=== PATIENT | female | born 1990 | race Caucasian/White ===

== ENCOUNTER 2016-07-03 13:15 | Inpatient (IN) ==
[2016-07-03] MEDS ORDERED: KETOROLAC 30 MG/ML VIAL IV ONE (13:28)
[2016-07-03 14:28] LABS: Basophils # (Auto) 0 K/mcL (0.0-0.3); Basophils % (Auto) 0.5 % (0.0-2.0); Eosinophils # (Auto) 0.2 K/mcL (0.0-0.7); Eosinophils % (Auto) 3.7 % (0.0-7.0); Granulocytes % (Auto) 48.4 % (38.0-78.0); Lymphocytes % (Auto) 44.1 % (15.5-49.0); Mean Cell Volume 85.5 fL (80.0-100.0); Mean Corpuscular HGB Conc 33.2 g/dL (31.0-36.0); Mean Corpuscular Hemoglobin 28.4 pg (26.0-34.0); Monocytes # (Auto) 0.1 K/mcL (0.1-0.9); Monocytes % (Auto) 3.3 % (1.0-9.0); Platelet Count 173 K/mcL (140-440); RBC 4.91 M/mcL (4.00-5.20); Red Cell Distribution Width 14.7 % (11.5-14.5)
--- NOTE | 2016-07-03 15:21 | XRay Report ---
HISTORY: Reason for Exam:SOB FINDINGS: There is a very large right-sided pneumothorax. There is greater than 60% collapse of the lung. There is minimal right to left mediastinal shift. The left lung is clear normally expanded. The heart size is normal. There is partial atelectasis in the right lung. The pneumothorax is a new finding since 06/26/14. Field impression large right-sided pneumothorax IMPRESSION: Large right-sided pneumothorax. Dr. Farris was called with results Interpreted and Authenticated by: Harpal Ryan 07/03/16
[2016-07-03] MEDS ORDERED: PROMETHAZINE 25 MG/ML VIAL IV PRN ×2 (16:20→17:41)
[2016-07-03] MEDS ORDERED: ACETAMINOPHEN 325 MG TABLET PO PRN (16:20)
[2016-07-03] MEDS ORDERED: MAGNESIUM HYDROXIDE 30 ML ORAL.SUSP PO PRN ×2 (16:20→17:41)
[2016-07-03] MEDS ORDERED: ZOLPIDEM 5 MG TABLET PO PRN ×2 (16:20→21:00)
[2016-07-03] MEDS ORDERED: 0.9 % SODIUM CHLORIDE 1,000 ML IV SCH (16:30)
[2016-07-03] MEDS ORDERED: KETOROLAC 30 MG/ML VIAL IV SCH (18:00)
[2016-07-03] MEDS: 0.9 % SODIUM CHLORIDE 1,000 ML IV SCH (18:02)
[2016-07-03 18:20] LABS: Hemoglobin A1C 4.5 % HGB (4.0-6.0)
[2016-07-03] MEDS: KETOROLAC 30 MG/ML VIAL IV SCH ×2 (18:31→23:32)
[2016-07-03] MEDS ORDERED: HYDROmorphone 2 MG/ML SYRINGE IV PRN (18:35)
[2016-07-03] MEDS ORDERED: oxyCODONE/APAP 10/325MG TABLET PO PRN (18:37)
[2016-07-03] MEDS ORDERED: KETOROLAC 15 MG/ML VIAL ONE (18:39)
[2016-07-03] MEDS ORDERED: HYDROmorphone 2 MG/ML SYRINGE ONE (19:05)
[2016-07-03] MEDS ORDERED: FAMOTIDINE 20 MG TABLET PO SCH (21:00)
[2016-07-03] MEDS ORDERED: DOCUSATE SODIUM 100 MG CAPSULE PO SCH (21:00)
[2016-07-03] MEDS: DOCUSATE SODIUM 100 MG CAPSULE PO SCH (21:12)
[2016-07-03] MEDS: MEPERIDINE 50 MG/ML SYRINGE IV PRN (21:12)
[2016-07-03] MEDS: FAMOTIDINE 20 MG TABLET PO SCH (21:12)
[2016-07-03] MEDS ORDERED: 0.9 % SODIUM CHLORIDE 10 ML SYRINGE IV SCH (22:00)
[2016-07-03] MEDS: 0.9 % SODIUM CHLORIDE 10 ML SYRINGE IV SCH (22:19)
[2016-07-03] MEDS: LORazepam 1 MG TABLET PO PRN (23:32)
[2016-07-04] MEDS: MEPERIDINE 50 MG/ML SYRINGE IV PRN ×5 (01:05→20:59)
[2016-07-04] MEDS: 0.9 % SODIUM CHLORIDE 10 ML SYRINGE IV SCH ×3 (05:49→22:05)
[2016-07-04] MEDS: KETOROLAC 30 MG/ML VIAL IV SCH ×4 (05:52→23:50)
[2016-07-04 07:18] LABS: Mean Cell Volume 86.7 fL (80.0-100.0); Mean Corpuscular Hemoglobin 28.6 pg (26.0-34.0); Platelet Count 145 K/mcL (140-440); RBC 4.05 M/mcL (4.00-5.20); Red Cell Distribution Width 14.3 % (11.5-14.5)
[2016-07-04 08:12] LABS: Blood Urea Nitrogen 11 mg/dl (6-20)
--- NOTE | 2016-07-04 08:31 | Emergency Department Note ---
Chest Pain HPI - General Chief Complaint: Shortness of Breath/Dyspnea Stated Complaint: SOB/pain on inspiration Time Seen by Provider: 07/03/16 13:28 Source: patient Mode of arrival: ambulatory Limitations: no limitations - History of Present Illness HPI Narrative: 26-year-old female comes in after waking up with sudden acute onset severe chest pain today by EMS. Denies trauma or recent illness. Smoker - Related Data Home Medications Medication Instructions Recorded Confirmed LORazepam [Ativan] 1 mg PO Q8HP PRN 01/25/16 07/03/16 Previous Rx's Medication Instructions Recorded Ondansetron HCl 4 mg PO Q6HP PRN #10 tablet 05/22/16 Allergies Allergy/AdvReac Type Severity Reaction Status Date / Time tramadol Allergy Intermediate Hives Verified 01/25/16 17:08 codeine AdvReac Severe Anxiety Verified 07/04/16 01:37 Review of Systems All systems ED: reviewed and negative except as stated. Chest Pain PMH - Past Medical History Attestation: Yes: The following information was validated with the patient. 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 Normocephalic atraumatic. Conjunctiva clear sclerae anicteric. No nasal discharge or congestion. Oropharynx is pink and moist. Neck supple without lymphadenopathy or thyromegaly. Heart is slightly tachycardic no murmur. Lungs are clear to auscultation bilaterally but diminished sounds on the right. Abdomen soft nontender nondistended. No pedal edema. +2 radial pulse. Alert and oriented. - General Limitations: no limitations Course Vital Signs Temperature 98.3 F 07/03/16 13:18 Pulse Rate 95 H 07/03/16 13:18 Respiratory Rate 18 07/03/16 13:18 Blood Pressure 116/89 07/03/16 13:18 Pulse Oximetry (%) 97 07/03/16 13:18 Temperature 97.8 F 07/04/16 04:00 Pulse Rate 38 L 07/04/16 05:31 Respiratory Rate 16 07/04/16 04:00 Blood Pressure 97/59 07/04/16 04:00 Pulse Oximetry (%) 100 07/04/16 04:00 Chest Pain - Lab Data Lab results reviewed: Yes I reviewed the patient's lab results. Result diagrams: 07/04/16 05:20 07/04/16 05:20 Lab Results 07/03/16 07/03/16 07/03/16 Range/Units 13:40 13:40 13:40 WBC 4.5 (4.5-11.0) K/mcL RBC 4.91 (4.00-5.20) M/mcL Hgb 13.9 (12.0-15.0) g/dL Hct 42.0 (36.0-48.0) % POC Hct 42.0 (36.0-48.0) % MCV 85.5 (80.0-100.0) fL MCH 28.4 (26.0-34.0) pg MCHC 33.2 (31.0-36.0) g/dL RDW 14.7 H (11.5-14.5) % Plt Count 173 (140-440) K/mcL MPV 9.2 (7.4-10.4) fL Gran % 48.4 (38.0-78.0) % Lymph % (Auto) 44.1 (15.5-49.0) % Mesa % (Auto) 3.3 (1.0-9.0) % Eos % (Auto) 3.7 (0.0-7.0) % Baso % (Auto) 0.5 (0.0-2.0) % Gran # 2.2 (1.8-8.0) K/mcL Lymph # 2.0 (1.5-4.8) K/mcL Mes[place] # 0.1 (0.1-0.9) K/mcL Eos # 0.2 (0.0-0.7) K/mcL Baso # 0 (0.0-0.3) K/mcL POC Sodium 142 (133-145) mmol/L POC Potassium 3.7 (3.3-5.1) mmol/L POC Chloride 104 (96-108) mmol/L POC Total CO2 23 (22-30) mmol/L POC BUN 6 (6-20) mg/dl POC Creatinine 0.7 (0.6-1.1) mg/dl POC Glucose 84 (70-105) mg/dL Hemoglobin A1c 4.5 (4.0-6.0) % HGB Estim Average Glucose 82 mg/dL POC WB Ioniz Calcium 1.18 (1.16-1.32) mmol/L - Radiology Data Radiology results reviewed: Yes I reviewed the patient's radiology results. Right lung is entirely collapsed on chest x-ray- significant spontaneous pneumothorax Disposition Clinical Impression: Spontaneous pneumothorax Summary: Discussed case with Dr. Noé Ley will come in and put a chest tube. We will admit the patient for further care Disposition: Xfer As Inpt ([facility]) Condition: Serious
--- NOTE | 2016-07-04 08:38 | XRay Report ---
HISTORY: Reason for Exam:POST CHEST FOR CHEST TUBE PLACEMENT FINDINGS: The pneumothorax seen on the preceding chest x-ray has resolved following insertion of a large caliber chest tube. The chest tube is positioned with its tip points superiorly, laterally in the right upper thorax. The right lung has nearly but not completely reexpanded. There are residual vertically oriented bands of discoid atelectasis in the mid and lower two thirds. No pleural effusion is present. There is no longer mediastinal shift. The left lung is normal. The heart size is normal. IMPRESSION: Resolved pneumothorax following chest tube insertion Interpreted and Authenticated by: Harpal Ryan 07/04/16
[2016-07-04 08:39] LABS: Eosinophils % (Manual) 3 % (0-7); Lymphocytes % 37 % (15-49); Monocytes % (Manual) 4 % (1-9); Platelet Estimate NORMAL (NORMAL); RBC Morphology NORMAL (NORMAL); Segmented Neutrophils % 56 % (38-78)
[2016-07-04] MEDS: DOCUSATE SODIUM 100 MG CAPSULE PO SCH ×2 (09:57→20:59)
[2016-07-04] MEDS: FAMOTIDINE 20 MG TABLET PO SCH ×2 (09:57→20:59)
--- NOTE | 2016-07-04 13:57 | General Surg History&Physical ---
History of Present Illness Patient information: Note initiated : 07/04/16 at 1:54 pm Service Date, if different from initiated Date: [03 jul 2016] Patient: Joanne Machado 26 y/o F admitted on 07/03/16 for SOB/pain on inspiration. Chief Complaint: [26-year-old female who presents with a 5 hour history of progressive right chest pain with shortness of breath.. There is no history of chest trauma. She felt a squeezing sensation chest and came to the emergency room. Exam revealed decreased breath sounds on the right and chest x-ray confirmed a major right pneumothorax. Patient was treated in the emergency room and right closed tube thoracostomy was done successfully with full reexpansion of her lung. She is admitted for treatment of her pneumothorax.] HPI: Ms. Machado is a 26 year old female Review of Systems - Constitutional malaise, weakness, weight loss - EENT Nose, mouth and throat: bleeding gums, dental pain, headache(s) - Cardiovascular chest pain with activity, dyspnea on exertion, irregular heart rhythm, palpatations, slow heart rate, syncope - Respiratory cough, dyspnea on exertion, pain on inspirtation - Gastrointestinal constipation, heartburn, nausea, no abdominal pain, no diarrhea, no melena - Genitourinary Genitourinary: no difficulty urinating, no dysuria, no urinary hesitancy, no urinary urgency - Musculoskeletal no arthralgias, no back pain, no myalgias, no numbness - Integumentary no bleeding lesions, no changing lesions, no pruritus, no rash - Neurological disequilibrium, dizziness, syncope, vertigo - Psychiatric anxiety, depression - Endocrine fatigue, palpitations - Hematologic/Lymphatic easy bleeding, easy bruising, lymphadenopathy - Allergic/Immunologic tongue swelling, throat swelling, uticaria, wheezing, lip swelling Past History Past medical history: anxiety with depression Mitral valve prolapse History of syncope Past surgical history: tubal ligation Past family history: mother with cardiomyopathy Past social history: single mother of 3 children Daily tobacco use Denies alcohol use Medications and Allergies Home Medications Medication Instructions Recorded Confirmed Type LORazepam [Ativan] 1 mg PO Q8HP PRN 01/25/16 07/03/16 History Allergies Allergy/AdvReac Type Severity Reaction Status Date / Time tramadol Allergy Intermediate Hives Verified 01/25/16 17:08 codeine AdvReac Severe Anxiety Verified 07/04/16 01:37 Exam Temp Pulse Resp BP Pulse Ox 97.8 F 43 L 14 93/60 99 07/04/16 04:00 07/04/16 08:00 07/04/16 08:00 07/04/16 08:00 07/04/16 08:00 - General physical appearance well developed, well nourished, no distress - Eyes PERRL, normal ocular movement - ENT normal pinna, normal nares, normal mucosa, no hearing loss, no congestion - Head Head exam IM: Present: atraumatic, normocephalic - Neck no masses, no bruits, trachea midline, no lymphadectomy, no venous distension - Cardiovascular Cardiovascular exam IM: Present: normal rate and rhythm - Respiratory normal expansion, normal respiratory effort, clear to percussion, clear to auscultation, other (good breath sounds equally after insertion of chest tube) - Abdomen Abdomen: Present: soft, non tender, bowel sounds Hernia: Present: none - Rectum Rectum: Present: normal sphincter tone - Integumentary Present: no rash, no growths, no abnormal pigmentation - Neurologic Present: normal coordination, normal sensation - Musculoskeletal Present: normal gait, normal posture - Psychiatric Present: oriented to time, oriented to person, oriented to place, speech is normal, memory intact Assessment and Plan (1) Spontaneous pneumothorax patient has had closed tube thoracostomy on the right She will be on closed suction and will have serial chest x-rays Length of stay is based on when she has cessation of pleural leak Status: Acute (2) Constipation by delayed colonic transit Status: Acute (3) LAURY (generalized anxiety disorder) Status: Acute
--- NOTE | 2016-07-04 14:07 | General Surgery Progress Note ---
Subjective Patient reports: feels better, still having pain, shortness of breath, afebrile Narrative: Note initiated : 07/04/16 at 2:04 pm Service Date, if different from initiated Date: [] Patient: Joanne Machado 26 y/o F admitted on 07/03/16 for SOB/pain on inspiration. Chief Complaint: [patient is doing well except for pain around the insertion site of chest. The shoulder and neck pain has resolved. She does not have major pleuritic pain.] Objective Temp Pulse Resp BP Pulse Ox 97.8 F 43 L 14 93/60 99 07/04/16 04:00 07/04/16 08:00 07/04/16 08:00 07/04/16 08:00 07/04/16 08:00 - Additional Data Intake & Output - Last 24 hours: Intake & Output 07/02/16 07/03/16 07/04/16 07/05/16 05:59 05:59 05:59 05:59 Intake Total 725 / 725 Output Total Balance 703 / 703 - Weight 105 lb - Additional Exam the patient is in no acute distress. She is lying in bed without difficulty. Her respirations are even and nonlabored. HEENT unremarkable. Neck supple without JVD or crepitus. Chest with good equal breath sounds bilaterally. Heart with a resting bradycardiawith heart rate between 50 and 60. Abdomen soft benign, nontender, nondistended. Extremities no peripheral edema - Labs 07/04/16 05:20 07/04/16 05:20 Diabetes panel 07/04/16 Range/Units 05:20 Sodium 139 (133-145) mmol/L Potassium 3.7 (3.3-5.1) mmol/L Chloride 104 (96-108) mmol/L Carbon Dioxide 26 (22-30) mmol/L BUN 11 (6-20) mg/dl Creatinine 0.7 (0.6-1.1) mg/dl Glucose 82 (70-105) mg/dL Calcium 8.5 L (8.6-10.4) mg/dl Calcium panel 07/04/16 Range/Units 05:20 Calcium 8.5 L (8.6-10.4) mg/dl Pituitary panel 07/04/16 Range/Units 05:20 Sodium 139 (133-145) mmol/L Potassium 3.7 (3.3-5.1) mmol/L Chloride 104 (96-108) mmol/L Carbon Dioxide 26 (22-30) mmol/L BUN 11 (6-20) mg/dl Creatinine 0.7 (0.6-1.1) mg/dl Glucose 82 (70-105) mg/dL Calcium 8.5 L (8.6-10.4) mg/dl Adrenal panel 07/04/16 Range/Units 05:20 Sodium 139 (133-145) mmol/L Potassium 3.7 (3.3-5.1) mmol/L Chloride 104 (96-108) mmol/L Carbon Dioxide 26 (22-30) mmol/L BUN 11 (6-20) mg/dl Creatinine 0.7 (0.6-1.1) mg/dl Glucose 82 (70-105) mg/dL Calcium 8.5 L (8.6-10.4) mg/dl Medical - PN: A/P - Time Spent With Patient Total time spent is greater than 50% in coordination of care (as documented) at patient's floor/unit and/or counseling patient: (1) Spontaneous pneumothorax Status: Acute Assessment and plan: patient has minimal pleural leak at this time. She will be continued on closed suction and follow up chest x-ray will be done in the morning. Current Visit: Yes (2) Constipation by delayed colonic transit Status: Acute Current Visit: No (3) LAURY (generalized anxiety disorder) Status: Acute Current Visit: No
[2016-07-04] MEDS: 0.9 % SODIUM CHLORIDE 1,000 ML IV SCH (18:32)
--- NOTE | 2016-07-04 20:41 | XRay Report ---
HISTORY: Reason for Exam:follow up pneumothorax FINDINGS: The lungs are well expanded. The previously seen bands of discoid atelectasis in the right lung have resolved. There is no pneumothorax or pleural effusion. Right-sided chest tube remains well-positioned. The heart size and mediastinum are normal. IMPRESSION: Normal chest Interpreted and Authenticated by: Harpal Ryan 07/04/16
[2016-07-04] MEDS: LORazepam 1 MG TABLET PO PRN (22:42)
[2016-07-05] MEDS: MEPERIDINE 50 MG/ML SYRINGE IV PRN ×5 (02:41→22:49)
[2016-07-05] MEDS: 0.9 % SODIUM CHLORIDE 10 ML SYRINGE IV SCH ×4 (04:11→20:47)
[2016-07-05] MEDS: KETOROLAC 30 MG/ML VIAL IV SCH ×2 (06:57→12:00)
--- NOTE | 2016-07-05 08:33 | XRay Report ---
CLINICAL INFORMATION: Follow up right pneumothorax COMPARISON: 07/03/2016 and 07/04/2016 chest x-ray. FINDINGS: Heart size, mediastinum and pulmonary vessels are normal. Right chest tube in stable, satisfactory position. There is no evidence of residual right pneumothorax. Both lungs are well expanded and clear. No effusions. Bones and soft tissues are normal. IMPRESSION: Negative chest. Complete resolution in right pneumothorax. Right chest tube in stable position Interpreted and Authenticated by: Alejo La 07/05/16
[2016-07-05] MEDS: FAMOTIDINE 20 MG TABLET PO SCH ×2 (09:58→20:33)
[2016-07-05] MEDS: DOCUSATE SODIUM 100 MG CAPSULE PO SCH ×2 (09:58→20:33)
--- NOTE | 2016-07-05 16:05 | General Surgery Progress Note ---
Subjective Patient reports: feels better, pain is less, afebrile Narrative: Note initiated : 07/05/16 at 4:03 pm Service Date, if different from initiated Date: [] Patient: Joanne Machado 26 y/o F admitted on 07/03/16 for SOB, Pain on Inspiration/Pneumothorax. Chief Complaint---patient is doing very well. She no longer has shoulder or neck pain. She has pain around herchest tube insertion site. She has good respirations and O2 sats are in the 99% range on room air. There is no evidence of pleural leak. She still has bradycardia with heart rates as low as 38 Her blood pres remained stable.] Objective Temp Pulse Resp BP Pulse Ox 97.7 F 67 16 100/66 97 07/05/16 12:00 07/05/16 12:00 07/05/16 12:00 07/05/16 12:00 07/05/16 12:00 - Additional Data Intake & Output - Last 24 hours: Intake & Output 07/03/16 07/04/16 07/05/16 07/06/16 05:59 05:59 05:59 05:59 Intake Total 725 / 725 1665 / 1665 240 / 240 Output Total / 1582 / 1582 5 / 5 Balance 703 / 703 83 / 83 235 / 235 Weight 105 lb 105 lb 105 lb - Additional Exam very thin young femalein no acute distress head and neck exam are unremarkable Chest with good breath sounds bilaterally Heart regular rhythm with tachycardia Abdomen soft nontender with good active bowel sounds Extremities no peripheral edema - Labs 07/04/16 05:20 07/04/16 05:20 - Imaging Chest x-ray: report reviewed, image reviewed Medical - PN: A/P - Time Spent With Patient Total time spent is greater than 50% in coordination of care (as documented) at patient's floor/unit and/or counseling patient: (1) Spontaneous pneumothorax Status: Acute Assessment and plan: patient does not have pleural leakand she has only 5 cc of output over the past 12 hours. She has good fluctuations of fluid in her chest tube. if her morning x-ray shows full reexpansion she will be placed on waterseal and allowed to ambulate. If over 12 hours she does not show evidence of leak. Chest tube will probably be discontinued. Current Visit: Yes (2) Constipation by delayed colonic transit Status: Acute Current Visit: No (3) LAURY (generalized anxiety disorder) Status: Acute Current Visit: No
[2016-07-05] MEDS: ACETAMINOPHEN 325 MG TABLET PO PRN (22:48)
[2016-07-06] MEDS: MEPERIDINE 50 MG/ML SYRINGE IV PRN ×3 (03:34→15:52)
[2016-07-06] MEDS: ACETAMINOPHEN 325 MG TABLET PO PRN ×2 (07:10→15:55)
[2016-07-06] MEDS: 0.9 % SODIUM CHLORIDE 10 ML SYRINGE IV SCH ×3 (07:10→21:10)
[2016-07-06] MEDS: FAMOTIDINE 20 MG TABLET PO SCH ×2 (08:31→21:04)
[2016-07-06] MEDS: DOCUSATE SODIUM 100 MG CAPSULE PO SCH ×2 (08:31→21:05)
--- NOTE | 2016-07-06 08:41 | XRay Report ---
CLINICAL INFORMATION: Follow right pneumothorax COMPARISON: 07/05/2016 FINDINGS: Right chest tube is in stable satisfactory position. There is no evidence of recurrent right pneumothorax. Both lungs are well expanded and clear. Heart size, mediastinum and pulmonary vessels are normal. Bones and soft tissues are unremarkable. IMPRESSION: Negative chest. No evidence of right pneumothorax or other abnormality. Interpreted and Authenticated by: Alejo La 07/06/16
--- NOTE | 2016-07-06 15:44 | XRay Report ---
CLINICAL INFORMATION: Follow right pneumothorax after chest tube waterseal placement COMPARISON: 07/06/2016 0642 hours. FINDINGS: Right chest tube is in stable satisfactory position. There is no evidence of recurrent right pneumothorax. Both lungs remain well expanded and clear. Heart size, mediastinum and pulmonary vessels are normal. IMPRESSION: No evidence of recurrent pneumothorax. Negative Interpreted and Authenticated by: Alejo La 07/06/16
--- NOTE | 2016-07-06 16:30 | General Surgery Progress Note ---
Subjective Patient reports: feels better, tolerating a regular diet, afebrile Narrative: Note initiated : 07/06/16 at 4:28 pm Service Date, if different from initiated Date: [] Patient: Joanne Machado 26 y/o F admitted on 07/03/16 for SOB, Pain on Inspiration/Pneumothorax. Chief Complaint: [patient has had a very good day. She did not have a leak this morning so her tube was disconnected from suctionand left to water seal. Follow-up chest x-ray 10 hours later reveals no evidence of pneumothorax and she does not have a leak. The chest tube was therefore discontinued and she will have follow-up chest x-ray in the morning..] Objective Temp Pulse Resp BP Pulse Ox 97.8 F 47 L 20 93/57 97 07/06/16 12:00 07/06/16 12:00 07/06/16 12:00 07/06/16 12:00 07/06/16 12:00 - Additional Data Intake & Output - Last 24 hours: Intake & Output 07/04/16 07/05/16 07/06/16 07/07/16 05:59 05:59 05:59 05:59 Intake Total 725 / 725 1665 / 1665 640 / 640 Output Total 1582 / 1582 5 / 5 Balance 703 / 703 83 / 83 635 / 635 Weight 105 lb 105 lb 105 lb - Additional Exam patient is lying quietly in bed on her left side head and neck exams unremarkable Chest with good breath sounds bilaterally Heart regular without ectopy or gallop Abdomen is benign Extremities without edema - Labs 07/04/16 05:20 07/04/16 05:20 - Imaging Chest x-ray: report reviewed, image reviewed Medical - PN: A/P - Time Spent With Patient Total time spent is greater than 50% in coordination of care (as documented) at patient's floor/unit and/or counseling patient: (1) Spontaneous pneumothorax Status: Acute Assessment and plan: patient is stable. Chest tube has been discontinued. Patient will have follow- up chest x-ray in the morning. Current Visit: Yes (2) Constipation by delayed colonic transit Status: Acute Current Visit: No (3) LAURY (generalized anxiety disorder) Status: Acute Current Visit: No
[2016-07-06] MEDS: LORazepam 1 MG TABLET PO PRN (22:18)
[2016-07-06] MEDS: MEPERIDINE 50 MG TABLET PO PRN (23:15)
[2016-07-07] MEDS: FAMOTIDINE 20 MG TABLET PO SCH (09:22)
[2016-07-07] MEDS: DOCUSATE SODIUM 100 MG CAPSULE PO SCH (09:22)
[2016-07-07] MEDS: MEPERIDINE 50 MG TABLET PO PRN ×2 (09:22→09:23)
--- NOTE | 2016-07-07 11:51 | General Surgery Progress Note ---
Subjective Narrative: Note initiated : 07/07/16 at 11:48 am Service Date, if different from initiated Date: [] Patient: Joanne Machado 26 y/o F admitted on 07/03/16 for SOB, Pain on Inspiration/Pneumothorax. Chief Complaint: [patient is doing well status post removal of right chest tube. She has not had any respiratory difficulty. Follow-up chest x-ray today shows full expansion of her lung. She has good equal breath sounds bilaterally. ] Objective Temp Pulse Resp BP Pulse Ox 97.9 F 67 16 124/71 98 07/07/16 07:34 07/07/16 07:34 07/07/16 07:34 07/07/16 07:34 07/07/16 07:34 - Additional Data Intake & Output - Last 24 hours: Intake & Output 07/05/16 07/06/16 07/07/16 07/08/16 05:59 05:59 05:59 05:59 Intake Total 1665 / 1665 640 / 640 1425 / 1425 Output Total 1582 / 1582 5 / 5 Balance 83 / 83 635 / 635 1425 / 1425 Weight 105 lb 105 lb 105 lb 8 oz - Additional Exam HEENT unremarkable without abnormality noted neck--supple no adenopathy and no crepitus Chest--clear to auscultation bilaterally Heart--regular rate and rhythm Abdomen--benign soft nontender - Labs 07/04/16 05:20 07/04/16 05:20 - Imaging Chest x-ray: report reviewed, image reviewed Medical - PN: A/P - Time Spent With Patient Total time spent is greater than 50% in coordination of care (as documented) at patient's floor/unit and/or counseling patient: (1) Spontaneous pneumothorax Status: Acute Assessment and plan: atient has evidence of resolution of pneumothorax She is stable for discharge home Current Visit: Yes (2) Constipation by delayed colonic transit Status: Acute Current Visit: No (3) LAURY (generalized anxiety disorder) Status: Acute Current Visit: No
--- NOTE | 2016-07-07 11:55 | Discharge Summary ---
Providers - Providers Patient information: Note initiated : 07/07/16 at 11:52 am Service Date, if different from initiated Date: [] Patient: Joanne Machado 26 y/o F admitted on 07/03/16 for SOB, Pain on Inspiration/Pneumothorax. Chief Complaint: [] Date of admission: 07/04/16 Discharge date: 07/07/16 Attending physician: Vicenta Ley Hospitalization Hospital course: 26-year-old f who presents with righ and acute shortness of breath. She had evidence of pneumothorax on the ri side by chest xray. A right closed tube thoracostomy was done and she has been on suction for the last 2 days Suction was discontinued yesterday and follow-up chest x-ray shows full expansion. Patient is stable for discharge Discharge diagnosis: right spontaneous pneumothorax Reason for admission: shortness of breath with pneumothorax Procedures: RIGHT CLOSED TUBE THORACOSTOMY Complications: NONE Exam Temp Pulse Resp BP Pulse Ox 97.9 F 67 16 124/71 98 07/07/16 07:34 07/07/16 07:34 07/07/16 07:34 07/07/16 07:34 07/07/16 07:34 - General physical appearance well developed, well nourished, no distress - Eyes PERRL, normal ocular movement - ENT normal pinna, normal nares, normal mucosa, no hearing loss, no congestion - Head Head exam IM: Present: atraumatic, normocephalic - Neck no masses, no bruits, trachea midline, no lymphadectomy, no venous distension - Cardiovascular Cardiovascular exam IM: Present: normal rate and rhythm - Respiratory normal expansion, normal respiratory effort, clear to percussion, clear to auscultation - Abdomen Abdomen: Present: soft, non tender, bowel sounds Hernia: Present: none - Integumentary Present: no rash, no growths, no abnormal pigmentation - Neurologic Present: normal coordination, normal sensation - Musculoskeletal Present: normal gait, normal posture - Psychiatric Present: oriented to time, oriented to person, oriented to place, speech is normal, memory intact Discharge Plan - Patient/Caregiver Discharge Instructions Activity: increase activity as tolerated Diet: Regular Diet Prescriptions: Meperidine [Demerol] 50 mg PO Q4HP PRN #60 tablet PRN Reason: Pain Nicotine [Nicoderm] 21 mg TD DAILY@1000 #30 patch - Follow up Plan Follow up with: Alyssa Jordan ARNP [Primary Care Provider] - Disposition: Home, Self-Care Prognosis: Good Rehab Potential: Serious I certify that the patient requires SNF services.: No Overall status at discharge: patient is not back to baseline Pending Studies Resuscitation Status Full Code Diet Regular Diet Start Sat Jul 03 Dinner Acetaminophen (Tylenol) 650 mg PO Q6HP PRN PRN Reason: PAIN/FEVER > 101 Last Admin: 07/06/16 15:55 Dose: 650 mg Admin: 07/06/16 07:10 Dose: 650 mg Admin: 07/05/16 22:48 Dose: 650 mg Docusate Sodium (Colace) 100 mg PO BID [facility] Last Admin: 07/07/16 09:22 Dose: 100 mg Admin: 07/06/16 21:05 Dose: 100 mg Admin: 07/06/16 08:31 Dose: Not Given Admin: 07/05/16 20:33 Dose: 100 mg Admin: 07/05/16 09:58 Dose: 100 mg Admin: 07/04/16 20:59 Dose: 100 mg Admin: 07/04/16 09:57 Dose: 100 mg Admin: 07/03/16 21:12 Dose: 100 mg Famotidine (Pepcid) 20 mg PO BID [facility] Last Admin: 07/07/16 09:22 Dose: 20 mg Admin: 07/06/16 21:04 Dose: 20 mg Admin: 07/06/16 08:31 Dose: 20 mg Admin: 07/05/16 20:33 Dose: 20 mg Admin: 07/05/16 09:58 Dose: 20 mg Admin: 07/04/16 20:59 Dose: 20 mg Admin: 07/04/16 09:57 Dose: 20 mg Admin: 07/03/16 21:12 Dose: 20 mg Lorazepam (Ativan) 1 mg PO Q8HP PRN PRN Reason: ANXIETY/SEDATION Last Admin: 07/06/16 22:18 Dose: 1 mg Admin: 07/04/16 22:42 Dose: 1 mg Admin: 07/03/16 23:32 Dose: 1 mg Magnesium Hydroxide (Milk Of Magnesia) 30 ml PO DAILYP PRN PRN Reason: Constipation Last Admin: 07/05/16 09:58 Dose: 30 ml Meperidine HCl (Demerol) 50 mg IV Q4HP PRN PRN Reason: Pain Last Admin: 07/06/16 15:52 Dose: 50 mg Admin: 07/06/16 07:10 Dose: 50 mg Admin: 07/06/16 03:34 Dose: 50 mg Admin: 07/05/16 22:49 Dose: 50 mg Admin: 07/05/16 19:11 Dose: 50 mg Admin: 07/05/16 15:16 Dose: 50 mg Admin: 07/05/16 07:09 Dose: 50 mg Admin: 07/05/16 02:41 Dose: 50 mg Admin: 07/04/16 20:59 Dose: 50 mg Admin: 07/04/16 16:59 Dose: 50 mg Admin: 07/04/16 12:30 Dose: 50 mg Admin: 07/04/16 08:03 Dose: 50 mg Admin: 07/04/16 01:05 Dose: 50 mg Admin: 07/03/16 21:12 Dose: 50 mg Meperidine HCl (Demerol) 50 mg PO Q4HP PRN PRN Reason: Pain Last Admin: 07/07/16 09:23 Dose: 25 mg Admin: 07/07/16 09:22 Dose: 50 mg Admin: 07/06/16 23:15 Dose: 50 mg Promethazine HCl (Phenergan) 12.5 mg IV Q6HP PRN PRN Reason: Nausea And Vomiting Last Admin: 07/06/16 08:31 Dose: 6.25 mg Sodium Chloride (Saline Flush) 10 ml IV Q8 B[place] Last Admin: 07/06/16 21:10 Dose: 10 ml Admin: 07/06/16 17:46 Dose: 10 ml Admin: 07/06/16 07:10 Dose: 10 ml Admin: 07/05/16 20:47 Dose: 10 ml Admin: 07/05/16 12:05 Dose: 10 ml Admin: 07/05/16 12:01 Dose: 10 ml Admin: 07/05/16 04:11 Dose: 10 ml Admin: 07/04/16 22:05 Dose: 10 ml Admin: 07/04/16 17:01 Dose: 10 ml Admin: 07/04/16 05:49 Dose: Not Given Admin: 07/03/16 22:19 Dose: Not Given Shift Summary 07/07/16 05:18 Shift Summary by Chelsie Cuh Feeling much better with the chest tube out. Still having some discomfort & tightness around the CT site, but nothing like it was. Looking forward to going home today, and will do what she can to not have this issue again. Took PO meds once, and they helped with the pain and didn't make her "woozy" like the IV meds. Initialized on 07/07/16 05:18 - END OF NOTE
--- NOTE | 2016-07-07 16:13 | XRay Report ---
CLINICAL INFORMATION: Follow right pneumothorax COMPARISON: 07/06/2016 FINDINGS: Right chest tube is now. There is no evidence of recurrent right pneumothorax or pleural effusion. Both lungs are well expanded and clear. Heart size, mediastinum and pulmonary vessels are normal. Bones and soft tissues are normal IMPRESSION: Normal chest - no evidence of recurrent right pneumothorax Interpreted and Authenticated by: Alejo La 07/07/16
--- NOTE | 2016-07-20 17:10 | Operative Note ---
DATE OF OPERATION: 07/03/2016 PREOPERATIVE DIAGNOSIS: Right spontaneous pneumothorax. POSTOPERATIVE DIAGNOSIS: Right spontaneous pneumothorax. PROCEDURE: Right closed tube thoracostomy. SURGEON: Vicenta Ley MD. ANESTHESIA: Local infiltration with 1% Xylocaine. INDICATION: A 26-year-old female who presented with shortness of breath and lack of breath sounds on the right side with x-ray evidence of a near complete pneumothorax on the right side. DESCRIPTION OF PROCEDURE: The patient was counseled for the procedure to be done under local anesthesia. She was turned to the modified left lateral decubitus position. Her right lateral chest was prepped and draped in the sterile field. Local infiltration with lidocaine was carried out at the T4 and T5 level in the mid axillary line. Once she had adequate anesthesia, a limited transverse incision was made at the T5 interspace. Using small mosquito clamps, the dissection was carried down to the rib and then using a larger clamp the dissection was carried over the fourth rib and into the plural cavity. The Lalita clamp was used to enlarge the pleural defect. The 26-[place] straight Aurora chest tube was placed uneventfully and adequately positioned. It was hooked to closed water seal. The tube was then secured using two sutures of 0 silk. The incision was closed securely with interrupted 2-0 silk. A dressing was placed. Chest x-ray was done, and it showed good placement of the tube with total obliteration of the pneumothorax. The dressing was made more secure, and the tube was taped for security. She was placed to suction. The patient tolerated the procedure well. Arrangements were made for admission and further followup until her pleural leak ceased. The patient had no problems during the procedure. [email or web address] Job ID: [id number] Doc ID: [id number] Vicenta Ley M.D.
== END 2016-07-07 13:00 | disposition home or self-care (01) | DRG 201 ==
LOC: ED 13:15 → MEDSUR 17:10
PROVIDERS: ADMIT Family Medicine Adult Medicine; ATTEND Family Medicine Adult Medicine